=== PATIENT | male | born 1990 | race Caucasian/White ===

== ENCOUNTER 2022-12-25 16:15 | Inpatient (IN) | payer SELFPAY ==
[2022-12-25 16:18] VITALS: BP 135/78; PULSE 96; RESP 18; TEMP 36.4; O2SAT 98
[2022-12-25 16:19] VITALS: BMI 30.1
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
[2022-12-25] MEDS: escitalopram 10 mg Tablet PO (18:35)
[2022-12-25 22:00] VITALS: BP 122/65; PULSE 82; RESP 17; TEMP 36.6; O2SAT 98
[2022-12-26 06:00] VITALS: RESP 18
[2022-12-26] MEDS: escitalopram 10 mg Tablet PO (08:07)
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
[2022-12-26 14:00] VITALS: BP 124/84; PULSE 57; RESP 16; TEMP 36.9; O2SAT 96
[2022-12-26 22:00] VITALS: RESP 16
[2022-12-27 06:00] VITALS: RESP 16
[2022-12-27] MEDS: escitalopram 10 mg Tablet PO ×2 (09:12→12:32)
[2022-12-27 14:00] VITALS: BP 143/91; PULSE 68; RESP 17; TEMP 36.7; O2SAT 94
--- NOTE | 2022-12-27 16:53 | P.NPUPN_ITS ---
Subjective NPU Subjective: Patient presented today reporting that he is starting to feel better and feels like he can contract for safety. He reports that he was not feeling like that when he came in and he is appreciative of the interventions. He reports now he is starting to have anxiety about work and losing money and things of that nature. We discussed the possibility of discharge in the next 48 hours. Mental Status Exam MSE Comments: This is an overweight versus obese male with hospital scrubs on and adequate grooming and eye contact. No abnormal movements except for mild psychomotor retardation. Cooperative with exam in mild distress. Speech was slightly decreased rate and normal volume. Mood described as a little better, affect congruent. Thought process organized. Thought content: Patient denied suicidal or homicidal ideation, there were no delusions reported or noted, he denied any auditory or visual hallucinations. Attention and concentration were intact and memory appeared reliable but none were formally tested. He is alert and oriented x3. Insight and judgment are fair and impulse control is limited. Vitals/I&O/Wt Last Vital Signs Temp 98.7 F 12/27/22 20:59 Pulse 67 12/27/22 20:59 Resp 18 12/27/22 20:59 BP 148/84 12/27/22 20:59 Pulse Ox 97 12/27/22 20:59 O2 Del Method Room Air 12/27/22 14:00 Weight last 48 hrs Weight 94.619 kg A&P Assessment and plan (1) Major depressive disorder, recurrent: (2) RUBEN (generalized anxiety disorder): (3) PTSD (post-traumatic stress disorder): Plan 38-year-old white male with a long history of mental health issues and trauma with genetic loading for addiction issues who presents on Lexapro reporting continued symptoms. 1. Continue current medication. Increased Lexapro to 20 mg p.o. daily and added propranolol 20 mg p.o. 3 times daily as needed. 2. Continue every 15 minute checks for safety. 3. Encourage individual, group and milieu therapies. Involuntary Hold Information 96 Hour Hold: 96 Hour Involuntary Admission: No Attestations NPU Medical Necessity Statement*: Inpatient hospitalization is medically necessary and the clinically appropriate intervention at this time. We will monitor medications and make changes as indicated. Likely length of stay 1-3 days. Coding Level of Care Code Acute Code for [facility] Diagnoses Major depressive disorder, recurrent F33.9 RUBEN (generalized anxiety disorder) F41.1 PTSD (post-traumatic stress disorder) F43.10
[2022-12-27 20:59] VITALS: BP 148/84; PULSE 67; RESP 18; TEMP 37.1; O2SAT 97
[2022-12-27] MEDS: trazodone 50 mg Tablet PO (21:13)
[2022-12-28] MEDS: OLANZapine 5 mg ODT PO (01:16)
[2022-12-28] MEDS: hyDROXYzine 25 mg Capsule 50 MG PO (01:16)
[2022-12-28] MEDS: escitalopram 10 mg Tablet 20 MG PO (08:44)
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
[2022-12-28 09:56] VITALS: BP 148/84; PULSE 67; RESP 18; TEMP 37.1; O2SAT 97
== END 2022-12-28 10:30 | disposition home or self-care (01) | DRG 885 ==
PROVIDERS: Admitting Provider Psychiatry & Neurology Psychiatry; Visit Provider Psychiatry & Neurology Psychiatry
DX: F33.9 Major depressive disorder, recurrent, unspecified (principal); R45.851 Suicidal ideations; F41.1 Generalized anxiety disorder; I10 Essential (primary) hypertension; F43.10 Post-traumatic stress disorder, unspecified
CPT/HCPCS: 97150; 97165; 99238